=== PATIENT | female | born 1940 | race Hispanic/Latino ===

== ENCOUNTER 2018-01-31 07:42 | Outpatient (CLI) | payer MEDICARE, BC ==
--- NOTE | 2018-01-31 12:15 | NM ---
CARDIAC SPECT: CLINICAL HISTORY: 77-year-old female with chest pain, atrial fibrillation, sick sinus syndrome, and hypertension. TECHNIQUE: A myocardial perfusion scan was performed using the single isotope one day protocol with technetium-9 9m sestamibi. 11 mCi were injected intravenously for the rest exam followed by 31 mCi for the stress exam. Pharmacologic stress with Lexiscan was monitored and interpreted by Dr. Garcia. FINDINGS: A small, fixed defect is seen in the apex. No reversible defects are identified. GATED SPECT LVEF: 72%. WALL MOTION EXAM: Normal. IMPRESSION: No evidence of reversible ischemia. POS: ERIN
[2018-01-31] MEDS ORDERED: Regadenoson 0.4 MG/5 ML SYRINGE ONE (15:10)
== END 2018-01-31 07:43 | disposition home or self-care (01) ==
LOC: NM 07:42
PROVIDERS: ATTEND Internal Medicine
DX: R07.9 Chest pain, unspecified (principal)
CPT/HCPCS: 78452; 93017; A9500; J2785

== ENCOUNTER 2019-07-03 08:06 | Outpatient (CLI) | payer MEDICARE, BC ==
--- NOTE | 2019-07-04 13:59 | NM ---
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 Chest pain and hypertension. COMPARISON: 01/31/2018 FINDINGS: Again noted is a relatively small fixed defect seen in the anterior aspect ventricular apex. No rever sible defect is identified. Gated images demonstrate normal ventricular wall motion and wall thickening. Calculated left ventricular ejection fraction is 75%. IMPRESSION: 1. Probably normal myocardial perfusion study without evidence of a reversible defect seen to suggest ischemia. Relatively fixed defect at the ventricular apex is again seen with normal ventricular wall motion and wall thickening in this region. This may be related to apical thinning. 2. Normal LVEF of 75%. This is not significantly changed when compared to the prior study in 2018 whe re the LVEF was 72%.
[2019-07-04] MEDS ORDERED: Regadenoson 0.4 MG/5 ML SYRINGE ONE (14:50)
== END 2019-07-03 08:07 | disposition home or self-care (01) ==
LOC: NM 08:06
PROVIDERS: ATTEND Internal Medicine
DX: I25.10 Atherosclerotic heart disease of native coronary artery without angina pectoris (principal)
CPT/HCPCS: 78452; A9500; 93017

== ENCOUNTER 2021-08-17 10:41 | Outpatient (CLI) | payer MEDICARE, BC | END 2021-08-17 10:42 | disposition home or self-care (01) | LOC: BICMAMMO 10:41 | PROVIDERS: ATTEND Surgery | DX: Z12.31 Encounter for screening mammogram for malignant neoplasm of breast (principal); Z85.3 Personal history of malignant neoplasm of breast; Z91.89 Other specified personal risk factors, not elsewhere classified; Z98.890 Other specified postprocedural states | CPT/HCPCS: 77063; 77067 ==

== ENCOUNTER 2021-10-01 14:55 | Outpatient (CLI) | payer MEDICARE, BC ==
[2021-10-01 15:32] LABS: Hemoglobin 9.5 g/dL (12.0-15.5); Mean Corpuscular HGB CONC 30.8 g/dL (32.0-36.0); Mean Corpuscular Hemoglobin 29.4 pg (27.0-33.0); Mean Corpuscular Volume 95.4 fl (81.6-98.3); Mean Platelet Volume 10.6 fl (7.4-10.4); Platelet Count 237 10x3/uL (150-450); RBC Distribution Width 15.5 % (11.5-14.5); Red Blood Cell (RBC) Count 3.23 10x6/uL (3.90-5.03); White Blood Cell (WBC) Count 5.7 10x3/uL (3.5-10.5)
[2021-10-01 15:51] LABS: Anion Gap 13 mmol/L (10-20); BUN (Urea Nitrogen) 17 mg/dL (9.8-20.1); Calc. Creatinine Clearance 0 mL/min (70-130); Calcium 8.6 mg/dL (7.8-10.44); Carbon Dioxide 25 mmol/L (23-31); Chloride 106 mmol/L (98-107); Glucose 101 mg/dL (83-110); Sodium 140 mmol/L (136-145)
[2021-10-01 16:11] LABS: Prothrombin Time 11.2 sec (9.5-12.1)
[2021-10-02 00:18] LABS: SARS-CoV-2 PCR by NAA Not Detected (NotDetected)
== END 2021-10-01 14:56 | disposition home or self-care (01) ==
LOC: LABBT 14:55
PROVIDERS: ATTEND Internal Medicine Cardiovascular Disease
DX: Z01.812 Encounter for preprocedural laboratory examination (principal); I49.5 Sick sinus syndrome; Z20.822 Contact with and (suspected) exposure to COVID-19
CPT/HCPCS: 80048; 85027; 85610; U0003; U0005

== ENCOUNTER 2021-10-06 08:50 | Day surgery (SDC) | payer MEDICARE, BC ==
[2021-10-02 10:27] VITALS: BMI 27.4
[2021-10-06] MEDS ORDERED: Vancomycin (BATCH) 1.5 GRAM/300 ML BAG ONE (09:41)
[2021-10-06] MEDS ORDERED: Lidocaine 1% (PF) 30 ML VIAL ONE (11:47)
[2021-10-06] MEDS ORDERED: Gentamicin 80 MG/100 ML BAG ONE (11:47)
[2021-10-06] MEDS ORDERED: CEFAZOLIN 1 GM VIAL ONE (11:47)
[2021-10-06] MEDS ORDERED: Lidocaine 1% PF 5 ML VIAL ONE (12:16)
[2021-10-06] MEDS ORDERED: PROPOFOL 200 MG/20 ML VIAL ONE (12:16)
[2021-10-06] MEDS ORDERED: PHENYLEPHRINE-NS 100 MCG/ML 10 ML SYRINGE ONE (12:16)
[2021-10-06] MEDS ORDERED: Fentanyl 100 MCG/2 ML VIAL ONE (12:24)
[2021-10-06] MEDS ORDERED: fentaNYL Citrate/PF 100 MCG/2 ML SYRINGE ONE (15:09)
[2021-10-06] MEDS ORDERED: Ondansetron PF 4 MG/2 ML Vial ONE (15:18)
== END 2021-10-06 18:35 | disposition home or self-care (01) ==
LOC: SDC 08:50
PROVIDERS: ATTEND Internal Medicine Cardiovascular Disease
PROC: 0JPT0PZ Removal of Cardiac Rhythm Related Device from Trunk Subcutaneous Tissue and Fascia, Open Approach (ICD-10-PCS; principal; 2021-10-06)
PROC: 0JH607Z Insertion of Cardiac Resynchronization Pacemaker Pulse Generator into Chest Subcutaneous Tissue and Fascia, Open Approach (ICD-10-PCS; 2021-10-06)
PROC: 3E0102A Introduction of Anti-Infective Envelope into Subcutaneous Tissue, Open Approach (ICD-10-PCS; 2021-10-06)
DX: Z45.010 Encounter for checking and testing of cardiac pacemaker pulse generator [battery] (principal); I49.5 Sick sinus syndrome; T82.897A Other specified complication of cardiac prosthetic devices, implants and grafts, initial encounter; I48.0 Paroxysmal atrial fibrillation; E03.9 Hypothyroidism, unspecified; I10 Essential (primary) hypertension; J44.9 Chronic obstructive pulmonary disease, unspecified; Z87.891 Personal history of nicotine dependence; Z79.01 Long term (current) use of anticoagulants; Z79.890 Hormone replacement therapy; Z79.899 Other long term (current) drug therapy; Y71.1 Therapeutic (nonsurgical) and rehabilitative cardiovascular devices associated with adverse incidents
CPT/HCPCS: 33222; 71045; 93005; C1785; J3370; J0690; J1580; J2001; J2405; J2704; J3010

== ENCOUNTER 2022-06-03 09:53 | Emergency (ER) | payer MEDICARE, BC | END 2022-06-03 10:13 | disposition left against medical advice (07) | LOC: ERS 09:53 | DX: Z53.21 Procedure and treatment not carried out due to patient leaving prior to being seen by health care provider (principal) ==

== ENCOUNTER 2022-08-27 12:35 | Outpatient (CLI) | payer MEDICARE, BC | END 2022-08-27 12:36 | disposition home or self-care (01) | LOC: BICMAMMO 12:35 | PROVIDERS: ATTEND Internal Medicine | DX: Z12.31 Encounter for screening mammogram for malignant neoplasm of breast (principal); Z80.3 Family history of malignant neoplasm of breast; Z85.3 Personal history of malignant neoplasm of breast; Z98.890 Other specified postprocedural states; Z91.89 Other specified personal risk factors, not elsewhere classified | CPT/HCPCS: 77063; 77067 ==